=== PATIENT | male | born 2005 | race Hispanic/Latino ===

== ENCOUNTER 2024-09-05 18:33 | Emergency (ER) | payer OTHER ==
[~2024-09-05] VITALS: Ht 175.3 cm; Wt 72.7 kg
[2024-09-05 18:40] VITALS: TEMP 96.2
[2024-09-05 20:04] VITALS: BP 118/56; O2SAT 99
== END 2024-09-05 22:47 | disposition left against medical advice (07) ==
LOC: EDBD 18:33 → M ED 18:33
DX: Z53.21 Procedure and treatment not carried out due to patient leaving prior to being seen by health care provider (principal)